=== PATIENT | female | born 1970 | race Hispanic/Latino ===

== ENCOUNTER → 2016-07-26 | Day surgery (SDC) | payer OTHER ==
[~2016-07-26] VITALS: Ht 162.6 cm; Wt 60.8 kg
[~2016-07-26] MED LIST: AURALGAN 14 ML14 ML OTIC; CLARITIN10 M1 PO; CORTISPORIN 1%-10 M1 AS; FLEXERIL10 MG PO; GOLYTELY SOLU4000 ML PO; IBU800 MG PO; IBUPROFEN800 MG PO; IRON325 M3 PO; LIDODERM 5% PAT1 PAT TOP; MIRALAX119 GM PO; OMEPRAZOLE20 M2 PO; OMEPRAZOLE40 MG PO; SUCRALFATE1 GM PO; TYLENOL #31 TAB PO; TYLENOL WITH C1 EACH PO; ZITHROMAX250 M2 PO
--- NOTE | 2016-07-26 14:27 | Operative Report ---
Operative/Inv Procedure Report Surgery Date: 07/26/16 Name of Procedure: D&C hysteroscopy Pre-Operative Diagnosis: Metromenorrhagia Post-Operative Diagnosis: Same fibroid Estimated Blood Loss: less than 50ml Surgeon/O And M Supervisor: WILBUR YANEZ MD Anesthesia: moderate sedation Operative/Procedure Note Note: Patient was taken to the operating room placed in dorsal supine position. After adequate anesthesia, patient was prepped and draped for surgery. Examination under anesthesia was performed. CO2 tenaculum was placed on the anterior lip of the cervix gentle downward traction was used. The cervix was dilated 29 Hegar to left insertion of the hysteroscope. Under direct visualization to hysteroscopy was performed using gas hysteroscope was removed and endocervical curettage was performed. And endometrial curettage was performed. All instruments removed from the vagina. The counts were correct the patient was awakened from anesthesia. And transported to recovery room awake and alert. Findings: 14 week size fibroid uterus no adnexal masses normal uterine lining
== END ==
LOC: STS 07-25 23:02
DX: N92.1 Excessive and frequent menstruation with irregular cycle (principal); D25.9 Leiomyoma of uterus, unspecified
CPT/HCPCS: 81025; 88305; J1885; J2250

== ENCOUNTER 2016-08-23 06:28 | Inpatient (IN) | payer OTHER ==
[~2016-08-23] VITALS: Ht 162.6 cm; Wt 59.4 kg
--- NOTE | 2016-08-23 10:08 | Operative Report ---
Operative/Inv Procedure Report Surgery Date: 08/23/16 Name of Procedure: cystoscopy: bilateral stent insertion Pre-Operative Diagnosis: fibroids Post-Operative Diagnosis: same Estimated Blood Loss: scant Surgeon/Extrusion Engineer: MD MAO ARNOLD-UROLOGY Anesthesia: general endotracheal tube Drains: 18FR BLUM Specimens: UCX Complications: NONE Operative/Procedure Note Note: The patient was taken to the operating room and placed on the OR table in supine position. Timeout was performed, with the patient awake, to confirm identify, planned procedures, anesthesia, antibiotics and other pertinent justin-operative information. After adequate anesthesia, and IV antibiotics, the patient was placed in lithotomy Yellow-fin stirrups. She was then draped and prepped in the usual surgical fashion, including a vaginal prep. A 22 [place] cystoscope sheath with a 30 angle lens was inserted into the bladder without significant difficulty. The bladder was thoroughly and systematically examined, and was noted to be free of tumor, free of stone, free of endometriosis. Both ureteral orifices were in their orthotopic positions with clear reflux bilaterally. Under direct visualization the left orifice was intubated with a 5 [place]se whistle-tip catheter, which was advanced easily into the left kidney pelvis. The right ureteral orifice was intubated with a second 5 [place] ureteral whistle tip catheter, and advanced into the right renal pelvis without difficulty. For identification purposes the blue marked stent went into the left kidney and the right ureteral stent was marked red. Urine culture was obtained and sent to pathology. The cystoscope was then removed leaving both stents in proper place. An 18 [place] Blum catheter was inserted draining clear fluid and 10 mL of sterile water was then placed in the balloon. The ends ureteral stents, which protruded externally, were taped to the Blum catheter in order to secure their position. The individual ureteral stents were then connected to their individual drainage devices. The patient tolerated the procedure well. All sponge needle and instrument count were correct at the end of this procedure. The patient was then placed in supine position with Venodyne's in place. At this point, Dr. Villa was able to proceed with her patient's surgery. Findings: NORMAL BLADDER Discharge Disposition: PROCEED WITH DR. VILLA CC: CIARA MAO MD
[2016-08-23 11:47] VITALS: BP 110/60
--- NOTE | 2016-08-23 12:00 | NUR ---
PATIENT ARRIVED TO UNIT FROM PACU. PATIENT IS ALERT AND ORIENTATED X3. VSS AND DOCUMENTED IN IPOC. NO SOB O2 AT 100% ON 2L VIA NC. TAPERED TO 1L. LUNGS CLEAR IN ALL LOBES. ABD SOFT FLAT. HYPOACTIVE BOWEL SOUND. NEG FLATUS. DSG INTACT. SMALL AMOUNT OF BLOOD NOTED ON DRESSING. PATIENT DENIES PAIN. 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 BLUM TO GRAVITY DRAINING CLEAR YELLOW URINE. NPO FOR LUNCH. IV FLUIDS D5LR AT 125ML/HR. ORIENTATED TO ROOM AND CALL LIGHT. ALPS INPLACE. WILL FOLLOW PLAN OF CARE.
--- NOTE | 2016-08-23 14:24 | Operative Report ---
Operative/Inv Procedure Report Surgery Date: 08/23/16 Name of Procedure: Laparotomy and myomectomy Pre-Operative Diagnosis: Fibroid uterus menorrhagia Post-Operative Diagnosis: Same Estimated Blood Loss: 50ml to 100ml Surgeon/Plate Driller: RENATA LAWRENCE,WILBUR Walsh and Dr. Alejo Keita Anesthesia: general endotracheal tube Operative/Procedure Note Note: Patient was taken the operating room placed supine position after adequate anesthesia patient placed in dorsolithotomy position the vagina was prepped draped fashion bladder was catheterized examination under anesthesia performed. This point the stents were placed by Dr. Addis Antonio patient was returned spine position on the abdomen was prepped and draped so fashion through Pfannenstiel skin incision 2 fingerbreadths of symptoms pubis in midline skin was cut was carried down to rectus fascia which was cut in curvilinear fashion in either direction patient tolerated that well on at this point the eye uterus is clearly visible and a Villagomez O'Chele was placed into the abdomen patient tolerated that well on the fibroid was injected there was fundal with some Pitressin the base of the fibroid was clamped with a Flaquita was removed using a Bovie and the pedicle was oversewn using 0 hemostasis was apparent a 1 cm fibroid that was also posterior the serosa of the uterus was opened on the fibroid was removed by tension the rest for reapproximated using his [id number] of 0 Pitressin was injected underneath the serosa hemostasis was apparent the 1 cm anterior fibroid I was removed at the serosa was entered using a Bovie the base of the pedicle was reapproximated using 0 hemostasis was apparent the abdomen was irrigated comes amounts once until clear on Seprafilm was applied to the surgical sites of the uterus to prevent adhesions the lap pads removed counts were correct the Scott remained in place the eye Villagomez O'Chele was removed the peritoneum surprise me 0 the fascia was reapproximated to continue sutures #1 skin was reapproximated ranjit at the end the case the stents removed bilaterally tip intact . The patient was on returned spine position awakened from anesthesia and transferred recovery room awake alert counts correct
[2016-08-23 14:46] VITALS: BP 116/60
[2016-08-23 16:00] VITALS: BP 110/60
[2016-08-23 18:00] VITALS: BP 108/61
--- NOTE | 2016-08-23 20:37 | NUR ---
ALERT AND ORIENTED X 3. VITAL SIGNS STABLE. DENIES CHEST PAIN. + PULSES DSG TO LOWER ABD. ABD BINDER IN PLACE. BLUM CARE GIVEN. NO DISCOMFORT AT THIS TIME. WILL CONTINUE TO MONITOR
[2016-08-23 22:08] VITALS: BP 110/52
[2016-08-23 23:52] VITALS: BP 100/62
[2016-08-24] VITALS (7 sets, daily range): BP systolic 100–111; BP diastolic 60–64
[2016-08-24 08:39] LABS: ABSOLUTE BASOPHIL COUNT 0 /CUMM (0.0-0.2); ABSOLUTE EOSINOPHIL COUNT 0 /CUMM (0.0-0.7); ABSOLUTE GRANULOCYTE CT 10.5 /CUMM (1.4-6.5); ABSOLUTE LYMPH COUNT 1.3 /CUMM (1.2-3.4); BASOPHIL % 0.2 % (0.0-2.0); EOSINOPHIL % 0.1 % (0-5); GRANULOCYTE % 81.5 % (42.2-75.2); HEMATOCRIT 38.7 % (37-47); MEAN CORPUSCULAR HGB 30.5 PG (27.0-31.0); MEAN CORPUSCULAR HGB CONC 32.6 G/DL (33.0-37.0); MEAN CORPUSCULAR VOLUME 93.7 FL (81.0-99.0); MEAN PLATELET VOLUME 8.6 FL (7.4-10.4); PLATELET COUNT 183 /CUMM (130-400); RBC DISTRIBUTION WIDTH 13.7 % (11.5-14.5); RED BLOOD CELL CT 4.13 /CUMM (4.20-5.40)
[2016-08-24 09:22] LABS: WHITE BLOOD CELL COUNT 12.9 /CUMM (4.8-10.8)
[2016-08-25 06:36] VITALS: BP 112/62
[2016-08-25] MEDS ORDERED: TYLENOL WITH C1 EACH PO (09:36)
--- NOTE | 2016-08-25 10:03 | NUR ---
NURSING NOTE: PATIENT LEFT FLOOR FLOOR VIA WALKING SELF WITH FAMILY FOR DISCHARGE. PATIENT A/OX3, STEADY GAIT. PAIN UPON DISCHARGE TOLERABLE WITH PAPER PRESCRIPTION IN HAND PER PATIENT REQUEST. DISCHARGE INFORMATION EDUCATED TO PATIENT. IV DISCONTINUED.
--- NOTE | 2016-09-13 14:12 | Surgical Discharge Summary ---
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 Home Who Do You Live With? Friend What is Your Primary Language? Persian Review of Systems: -13 point review of systems as stated in the [facility] Hospital Course Course Attending Physician: WILBUR YANEZ MD Primary Care Physician: ROSA ELENA HUITRON APRN [facility] Course: Patient was admitted for a myomectomy she did well she had performed on general anesthesia and Block she tolerated oral pain medications and some IV Toradol postoperatively he passed gas and she was discharged home on the following day to postop. Patient did very well she is a pale white female HEENT anicteric lungs clear heart S1-S2 abdomen soft incision clean dry and intact with ranjit in place semis negative edema negative Homans Allergies: Coded Allergies: amoxicillin (Intermediate, "I JUST GET SICK" 01/05/16) clarithromycin (Intermediate, GI UPSET 02/06/16) Disposition Summary Disposition Principal Diagnosis: Status post myomectomy Additional Diagnosis: Anemia Discharge Disposition: home or self care Discharge Instructions General Discharge Information Code Status: Full Code Patient's Diet: Regular Patient's Activity: Regress no heavy lifting greater than 15 pounds lifting the vagina for 6 weeks Follow-Up Instructions/Appts: no tub baths Y office 1 week to remove the ranjit Medications at Discharge Discharge Medications: Continue taking these medications: Omeprazole (Omeprazole) 20 MG CAPSULE.DR 1 Capsule ORAL DAILY Comments: NOT GIVEN IN HOSPITAL Loratadine (Claritin) 10 MG TABLET 1 Tablet ORAL DAILY Comments: NOT GIVEN IN HOSPITAL Ferrous Sulfate (IRON) (Unknown Strength) TABLET Unknown Dose ORAL DAILY Comments: NOT GIVEN IN HOSPITAL Tylenol With Codeine (Tylenol With Codeine #3 Tablet) (Unknown Strength) TABLET Unknown Dose ORAL as needed for PAIN Comments: NOT GIVEN IN HOSPITAL Start taking the following new medications: Tylenol With Codeine (Tylenol With Codeine #3 Tablet) 300 MG-30 MG TABLET 1 Tablet ORAL EVERY SIX HOURS as needed for ABDOMINAL PAIN Qty = 24 No Refills
== END 2016-08-25 10:03 | DRG 519 ==
LOC: ENRESERVTM → ENRESERVDT → STS 06:28 → SDA 07:00 → STS 07:00 → ENPENDDIS 07:00 → 2NB 07:00 → EDSTATUS 07:00 → 2NB 11:39
PROVIDERS: ADMIT Specialist
PROC: 0T788DZ Dilation of Bilateral Ureters with Intraluminal Device, Via Natural or Artificial Opening Endoscopic (ICD-10-PCS; principal; 2016-08-23)
PROC: 0UB90ZZ Excision of Uterus, Open Approach (ICD-10-PCS; principal; 2016-08-23)
DX: D25.9 Leiomyoma of uterus, unspecified (principal); N92.0 Excessive and frequent menstruation with regular cycle; K21.9 Gastro-esophageal reflux disease without esophagitis; E61.1 Iron deficiency; J45.909 Unspecified asthma, uncomplicated
CPT/HCPCS: 2NBSP; 36415; 81003; 82670; 87086; 88305; J0131; J1100; J1170; J1200; J1580; J1885; J2765